=== PATIENT | male | born 1995 | race Caucasian/White ===

== ENCOUNTER 2018-09-22 02:02 | Emergency (ER) | payer OTHER ==
[~2018-09-22] VITALS: Ht 175.3 cm; Wt 77.9 kg
[2018-09-22 02:06] VITALS: Ht 175.3 cm; Wt 77.9 kg
[2018-09-22 03:10] VITALS: BP 120/75; PULSE 71; RESP 16
--- NOTE | 2018-09-22 03:35 | ERD ---
ER Documentation Chief Complaint Chief Complaint Heroin withdrawal c/o palpitations, chills, unable to sleep;last use 09/15/18 HPI Patient is a 23-year-old male with no medical problems who presents with heroin withdrawal. He says that his last use was on September 15. He has leg pain and chills. He felt like his heart was beating fast. He has gone to a methadone clinic over the past 2 days but says that they want him to come to early and he cannot go to work if he goes to the methadone clinic. Upon review of old medical records this is the patient's first visit to the emergency department. ROS All systems reviewed and are negative except as per history of present illness. Allergies Allergies: Coded Allergies: No Known Allergy (Unverified , 09/22/18) PMhx/Soc Medical and Surgical Hx: pt denies Medical Hx, pt denies Surgical Hx Hx Alcohol Use: No Hx Substance Use: Yes (heroin) Hx Tobacco Use: No Smoking Status: Never smoker FmHx Family History: diabetes Physical Exam Vitals Vital Signs Date Temp Pulse Resp B/P (MAP) Pulse Ox O2 O2 Flow FiO2 Time Delivery Rate 09/22/18 98.0 71 16 120/75 99 Room Air 03:10 (90) 09/22/18 98.0 74 17 123/79 99 02:06 (94) Physical Exam Const: No acute distress Head: Atraumatic Eyes: Normal Conjunctiva ENT: Normal External Ears, Nose and Mouth. Neck: Full range of motion. No meningismus. Resp: Clear to auscultation bilaterally Cardio: Regular rate and rhythm, no murmurs Abd: Soft, non tender, non distended. Normal bowel sounds Skin: No petechiae or rashes Back: No midline or flank tenderness Ext: No cyanosis, or edema Neur: Awake and alert Psych: Normal Mood and Affect Results 24 hrs Current Medications Medications Dose Sig/Armida Start Time Status Last (Trade) Ordered Route PRN Stop Time Admin Dose Reason Admin Clonidine 0.1 mg ONCE ONCE 09/22/18 DC 09/22/18 ([facility]ap[facility]) PO 02:30 03:03 09/22/18 02:31 Procedures/MDM Patient is a 23-year-old male who presents with heroin withdrawal. I do not believe requires further work-up or admission to hospital at this time. The patient will be given clonidine 0.1 mg for symptomatic relief. The patient will need to follow-up closely with the local clinics and drug detox facilities for help with his heroin withdrawal. The patient can return for any worsening symptoms. He is requesting Suboxone but this will need to be prescribed by a drug detox doctor. Departure Diagnosis: Primary Impression: Drug withdrawal Substance type: opioid Qualified Codes: F11.23 - Opioid dependence with withdrawal Condition: Fair Patient Instructions: Narcotic Withdrawal Referrals: [facility] YOU HAVE RECEIVED A MEDICAL SCREENING EXAM AND THE RESULTS INDICATE THAT YOU DO NOT HAVE A CONDITION THAT REQUIRES URGENT TREATMENT IN THE EMERGENCY DEPARTMENT. FURTHER EVALUATION AND TREATMENT OF YOUR CONDITION CAN WAIT UNTIL YOU ARE SEEN IN YOUR DOCTORS OFFICE WITHIN THE NEXT 1-2 DAYS. IT IS YOUR RESPONSIBILITY TO MAKE AN APPOINTMENT FOR FOLOW-UP CARE. IF YOU HAVE A PRIMARY DOCTOR --you should call your primary doctor and schedule an appointment IF YOU DO NOT HAVE A PRIMARY DOCTOR YOU CAN CALL OUR PHYSICIAN REFERRAL HOTLINE AT IF YOU CAN NOT AFFORD TO SEE A PHYSICIAN YOU CAN CHOSE FROM THE FOLLOWING THE [facility] [address] [facility]. [facility] [address] [facility] [facility] [address] [facility]. [facility] [address] [facility]. [facility] [address] [facility]. [facility]. 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 DEQUAN MANZANARES MD Sep 22, 2018 03:35
== END 2018-09-22 03:45 | disposition home or self-care (01) ==
LOC: E/R 02:02
DX: F11.23 Opioid dependence with withdrawal (principal); R40.2142 Coma scale, eyes open, spontaneous, at arrival to emergency department; R40.2362 Coma scale, best motor response, obeys commands, at arrival to emergency department; R40.2252 Coma scale, best verbal response, oriented, at arrival to emergency department
CPT/HCPCS: Z7502; Z7610; 99283